=== PATIENT | male | born 1960 | race Caucasian/White ===

== ENCOUNTER → 2021-08-28 08:26 | Outpatient (CLI) | payer OTHER, SELFPAY | PROVIDERS: PCP Family Medicine; Visit Provider Nurse Practitioner | DX: Z20.822 Contact with and (suspected) exposure to COVID-19 (principal) | CPT/HCPCS: C9803; U0003; U0005 ==

== ENCOUNTER → 2023-03-31 07:51 | Outpatient (CLI) | payer OTHER, SELFPAY ==
--- NOTE | 2023-03-31 | CA_ITS ---
APPROVED REPORT Exam: Exercise Treadmill Technologist: Zora Martinez Ht: 5 ft 7 in Wt: 150 lbs BSA: 1.79 m2 HR: 65 bpm BP: 146/65 mmHg Indications: Screening for Heart Disease Medical History Medications: Pravastatin,,,,, Stress Test Details Test: Yair HR Resting HR: 72 bpm Max Heart Rate (APMHR): 158.226649 bpm Max HR Achieved: 168 bpm Target HR (85% APMHR): 134.469728 bpm % of APMHR: 106.33 Recovery HR: 94 bpm BP Resting BP: 146.0/79.0 mmHg Max BP: 180.0/84.0 mmHg Recovery BP: 133.0/69.0 mmHg ECG Resting ECG: Normal sinus rhythm Clinical Exercise duration: 12:55 min Highest Stage Achieved: Exercise capacity: 14.8 METs Stress ECG Conclusion Patient exercised 12:55 on Yair Protocol. Test stopped due to shortness of air, fatigue. Symptoms: No chest pain. Arrhythmias/Ectopy: Rare PAC ST-T Changes: Alowing for motional artifact, the ST response to exercise appears to be within normal. Conclusion: Within normal GXT. GXT only(no imaging). Test Summary REST . . . . . . . Sitting REST . . . . . . . Standing REST 05:12 0.0 0.0 72 . 146/ 79 . . Stage 1 01:00 10.0 1.7 87 . . . . Stage 1 02:00 10.0 1.7 99 . . . . Stage 1 03:00 10.0 1.7 93 . 158/ 80 . . Stage 2 01:00 12.0 2.5 97 . . . . Stage 2 02:00 12.0 2.5 105 . . . . Stage 2 03:00 12.0 2.5 111 . . . . Stage 3 01:00 14.0 3.4 116 . 180/ 84 . . Stage 3 02:00 14.0 3.4 122 . 180/ 84 . . Stage 3 03:00 14.0 3.4 124 . 180/ 84 . . Stage 4 01:00 16.0 4.2 139 . . . . Stage 4 02:00 16.0 4.2 153 . . . . Stage 4 03:00 16.0 4.2 160 . . . . Stage 5 00:55 18.0 5.0 167 . . . Stop exercise at 12:55 RECOVERY 01:00 0.0 0.0 140 . . . . RECOVERY 02:00 0.0 0.0 117 . 160/ 76 . . RECOVERY 03:00 0.0 0.0 99 . 160/ 76 . . RECOVERY 04:00 0.0 0.0 93 . 156/ 72 . . RECOVERY 05:00 0.0 0.0 97 . 133/ 69 . . RECOVERY 05:20 0.0 0.0 92 . 133/ 69 . . Electronically signed by : Joe Correia MD 03/31/2023 17:32:16
== END ==
PROVIDERS: PCP Family Medicine; Visit Provider Family Medicine
DX: Z13.6 Encounter for screening for cardiovascular disorders (principal)
CPT/HCPCS: 93017

== ENCOUNTER → 2023-08-04 14:12 | Outpatient (CLI) | payer OTHER, SELFPAY ==
[2023-08-04 14:32] LABS: Basophils # 0.1 K/mm3 (0-0.2); Basophils % 0.4 % (0.1-2.0); Eosinophils # 0.1 K/mm3 (0.0-0.4); Eosinophils % 0.9 % (0.1-12.0); Hematocrit 47.2 % (42.0-52.0); Hemoglobin 16.1 g/dL (14.1-18.0); Lymphocytes # 8.9 K/mm3 (0.7-4.5); Mean Corpuscular HGB Conc 34.1 g/dL (31.8-35.4); Mean Corpuscular Hemoglobin 32.9 pg (27.0-31.2); Mean Corpuscular Volume 96.4 fl (80-94); Mean Platelet Volume 7.2 fl (7.4-10.4); Monocytes # 0.1 K/mm3 (0.1-1.0); Monocytes % 1.2 % (1.7-9.3); Neutrophils # 2.7 K/mm3 (1.8-7.8); Neutrophils % 22.5 % (37.0-80.0); Platelet Count 185 K/mm3 (142-424); Red Blood Count 4.89 M/mm3 (4.60-6.20); Red Cell Distribution Width 13.4 % (11.5-17.5); White Blood Count 11.8 K/mm3 (4.8-10.8)
[2023-08-04 14:50] LABS: MANUAL DIFFERENTIAL MANUAL DIFFERENTIAL (MANUAL DIFF)
[2023-08-04 15:25] LABS: Alanine Aminotransferase 29 U/L (12-78); Albumin Level 4.4 g/dl (3.5-5.0); Albumin/Globulin Ratio 1.5 (1.1-1.8); Alkaline Phosphatase 85 U/L (38-126); Anion Gap 8.4 mEq/L (5-15); Aspartate Amino Transferase 31 U/L (17-59); Bilirubin,Total 0.3 mg/dl (0.2-1.3); Blood Urea Nitrogen 15 mg/dl (9-20); Calcium 9.2 mg/dl (8.4-10.2); Carbon Dioxide 32 mmol/L (22.0-30.0); Chloride 101 mmol/L (98-107); Cholesterol 147 mg/dl (140-200); Estimated Glomerular Filt Rate 85 ml/min (>60); GFR (African American) 103 ML/MIN (>60); Globulin 2.9 g/dL (1.3-3.2); Glucose 83 mg/dl (74-100); HDL Cholesterol 37 mg/dl (40-60); Lactate Dehydrogenase 126 U/L (313-618); Potassium 4.4 mmoL/L (3.5-5.1); Sodium 137 mmol/L (136-145); Total Protein,Serum 7.3 g/dl (6.3-8.2); Triglycerides 116 mg/dl (30-150); VLDL Cholesterol 23 mg/dL (0-40)
[2023-08-04 15:36] LABS: Direct LDL Cholesterol 89.28 mg/dL (100-129)
[2023-08-04 15:37] LABS: Eosinophils % 2 % (0-3); Lymphocytes % 79 % (10-50); Neutrophils % 19 % (42-76); Platelet Estimate Normal; RBC Morphology Normal; Total Cells Counted 100
== END ==
LOC: LAB 14:13
PROVIDERS: PCP Family Medicine; Visit Provider Internal Medicine Medical Oncology
DX: C91.10 Chronic lymphocytic leukemia of B-cell type not having achieved remission (principal)
CPT/HCPCS: 36415; 80053; 80061; 83615; 85007; 85025

== ENCOUNTER 2024-02-01 10:38 | Outpatient (CLI) | payer OTHER, SELFPAY ==
[2024-02-01 11:17] LABS: Basophils # 0.4 K/mm3 (0-0.2); Eosinophils # 0.1 K/mm3 (0.0-0.4); Eosinophils % 0.1 % (0.1-12.0); Hematocrit 44.4 % (42.0-52.0); Hemoglobin 14.3 g/dL (14.1-18.0); Lymphocytes # 38.8 K/mm3 (0.7-4.5); Lymphocytes % 90.1 % (10-50); Mean Corpuscular HGB Conc 32.1 g/dL (31.8-35.4); Mean Corpuscular Hemoglobin 32.5 pg (27.0-31.2); Mean Corpuscular Volume 101.3 fl (80-94); Mean Platelet Volume 7.6 fl (7.4-10.4); Monocytes # 0.3 K/mm3 (0.1-1.0); Monocytes % 0.8 % (1.7-9.3); Neutrophils # 3.5 K/mm3 (1.8-7.8); Platelet Count 257 K/mm3 (142-424); Red Blood Count 4.39 M/mm3 (4.60-6.20); Red Cell Distribution Width 14.2 % (11.5-17.5)
[2024-02-01 11:24] LABS: MANUAL DIFFERENTIAL MANUAL DIFFERENTIAL (MANUAL DIFF); White Blood Count 43.1 K/mm3 (4.8-10.8)
[2024-02-01 11:53] LABS: Chloride 104 mmol/L (98-107); Potassium 3.9 mmoL/L (3.5-5.1); Sodium 138 mmol/L (136-145)
[2024-02-01 11:55] LABS: Blood Urea Nitrogen 15 mg/dl (9-20); Estimated Glomerular Filt Rate 98 ml/min (>60)
[2024-02-01 11:56] LABS: Alanine Aminotransferase 18 U/L (12-78); Albumin Level 3.8 g/dl (3.5-5.0); Albumin/Globulin Ratio 1.4 (1.1-1.8); Alkaline Phosphatase 80 U/L (38-126); Anion Gap 6.9 mEq/L (5-15); Aspartate Amino Transferase 23 U/L (17-59); Bilirubin,Total 0.3 mg/dl (0.2-1.3); Carbon Dioxide 31 mmol/L (22.0-30.0); GFR (African American) 118 ML/MIN (>60); Globulin 2.7 g/dL (1.3-3.2); Glucose 95 mg/dl (74-100); Total Protein,Serum 6.5 g/dl (6.3-8.2)
[2024-02-01 12:24] LABS: Lactate Dehydrogenase 122 U/L (313-618)
[2024-02-01 12:36] LABS: Lymphocytes % 86 % (10-50); Monocytes % 1 % (2-9); Neutrophils % 13 % (42-76); Platelet Estimate Normal; RBC Morphology Normal; Total Cells Counted 100
== END 2024-02-01 23:59 | disposition home or self-care (01) ==
PROVIDERS: PCP Family Medicine; Visit Provider Internal Medicine Medical Oncology
DX: C95.10 Chronic leukemia of unspecified cell type not having achieved remission (principal)
CPT/HCPCS: 36415; 80053; 83615; 85007; 85025; 85027

== ENCOUNTER 2024-04-28 09:02 | Outpatient (CLI) | payer OTHER, SELFPAY ==
[2024-04-28 09:28] LABS: Basophils # 0.1 K/mm3 (0-0.2); Basophils % 0.7 % (0.1-2.0); Eosinophils # 0.1 K/mm3 (0.0-0.4); Eosinophils % 0.9 % (0.1-12.0); Hematocrit 48.2 % (42.0-52.0); Hemoglobin 15.1 g/dL (14.1-18.0); Lymphocytes # 13.1 K/mm3 (0.7-4.5); Lymphocytes % 83.7 % (10-50); Mean Corpuscular HGB Conc 31.3 g/dL (31.8-35.4); Mean Corpuscular Hemoglobin 32.3 pg (27.0-31.2); Mean Corpuscular Volume 103.1 fl (80-94); Mean Platelet Volume 9.5 fl (7.4-10.4); Monocytes # 0.2 K/mm3 (0.1-1.0); Monocytes % 1.1 % (1.7-9.3); Neutrophils # 2.1 K/mm3 (1.8-7.8); Platelet Count 149 K/mm3 (142-424); Red Blood Count 4.67 M/mm3 (4.60-6.20); Red Cell Distribution Width 14.2 % (11.5-17.5); White Blood Count 15.6 K/mm3 (4.8-10.8)
[2024-04-28 09:36] LABS: MANUAL DIFFERENTIAL MANUAL DIFFERENTIAL (MANUAL DIFF); Neutrophils % 13.6 % (37.0-80.0)
[2024-04-28 09:44] LABS: Alanine Aminotransferase 35 U/L (12-78); Albumin/Globulin Ratio 1.4 (1.1-1.8); Alkaline Phosphatase 71 U/L (38-126); Anion Gap 6.1 mEq/L (5-15); Aspartate Amino Transferase 37 U/L (17-59); Bilirubin,Total 0.7 mg/dl (0.2-1.3); Blood Urea Nitrogen 14 mg/dl (9-20); Calcium 9.2 mg/dl (8.4-10.2); Carbon Dioxide 31 mmol/L (22.0-30.0); Chloride 106 mmol/L (98-107); Estimated Glomerular Filt Rate 85 ml/min (>60); GFR (African American) 103 ML/MIN (>60); Globulin 2.8 g/dL (1.3-3.2); Glucose 90 mg/dl (74-100); Lactate Dehydrogenase 131 U/L (313-618); Potassium 4.1 mmoL/L (3.5-5.1); Sodium 139 mmol/L (136-145); Total Protein,Serum 6.8 g/dl (6.3-8.2)
[2024-04-28 13:08] LABS: Anisocytosis 1+; Lymphocytes % 84 % (10-50); Macrocytosis 1+; Neutrophils % 16 % (42-76); Platelet Estimate Slight Decrease; Total Cells Counted 100
== END 2024-04-28 23:59 | disposition home or self-care (01) ==
LOC: LAB 09:04
PROVIDERS: PCP Family Medicine; Visit Provider Internal Medicine Medical Oncology
DX: C91.10 Chronic lymphocytic leukemia of B-cell type not having achieved remission (principal)
CPT/HCPCS: 36415; 80053; 83615; 85007; 85025; 85027